=== PATIENT | male | born 1990 | race African-American/Black ===

== ENCOUNTER 2022-11-03 12:42 | Emergency (ER) | payer OTHER ==
[2022-11-03 12:55] VITALS: BP 134/71; PULSE 73; RESP 17; TEMP 98.3; BMI 36.8
[2022-11-03] MEDS ORDERED: KETOROLAC TROMETHAMINE 15 MG/ML VIAL IM ONE (13:09)
[2022-11-03] MEDS ORDERED: ACETAMINOPHEN 325 MG TABLET (FP) PO ONE (13:09)
[2022-11-03] MEDS ORDERED: KETOROLAC TROMETHAMINE 15 MG/ML VIAL ONE (13:38)
[2022-11-03] MEDS ORDERED: ACETAMINOPHEN 325 MG TABLET (FP) ONE (13:38)
[2022-11-03 14:21] LABS: URINE APPEARANCE CLEAR; URINE BILIRUBIN NEGATIVE (NEGATIVE); URINE COLOR YELLOW; URINE GLUCOSE (UA) NEGATIVE (NEGATIVE); URINE KETONE NEGATIVE (NEGATIVE); URINE LEUK ESTERASE NEGATIVE (NEGATIVE); URINE NITRITE NEGATIVE (NEGATIVE); URINE PROTEIN NEGATIVE (NEGATIVE)
== END 2022-11-03 16:18 | disposition home or self-care (01) ==
LOC: JER 12:42
PROC: 3E0233Z Introduction of Anti-inflammatory into Muscle, Percutaneous Approach (ICD-10-PCS; principal; 2022-11-03)
DX: R10.31 Right lower quadrant pain (principal)
CPT/HCPCS: 74176-TC; 81003; 87086; 93005; 93010; 99285-25